=== PATIENT | female | born 1950 | race Caucasian/White ===

== ENCOUNTER 2017-09-27 10:04 | Inpatient (IN) ==
[2017-09-30 07:45] VITALS: BP 113/83
== END 2017-09-30 13:00 | disposition home or self-care (01) | DRG 253 ==
LOC: N.CL 10:04 → N.4E 14:48 → N.CC 09-28 17:39 → N.2E 09-29 12:13 → EDSDCBED 09-29 12:13 → N.TELES 09-29 12:13 → N.CL 09-30 13:00 → UNDODEPSDC 10-01 11:34
PROVIDERS: ADMIT Internal Medicine Cardiovascular Disease; ATTEND Internal Medicine Cardiovascular Disease

== ENCOUNTER 2019-02-03 06:53 | Inpatient (IN) ==
[2019-01-30 14:36] LABS: Basophils # 0.1 10*3/uL (0.0-0.2); Basophils % 0.5 % (0.0-0.8); Eosinophils # 0.2 10*3/uL (0.0-0.87); Eosinophils % 1.8 % (0.00-10.9); Hematocrit 42.6 VOL% (35.7-47.0); Hemoglobin 13.8 GM/DL (12.0-16.0); Immature Granulocytes % 0.3 %; Immature Granulocytes Absolute 0.03 #; Lymphocytes # 3.5 10*3/uL (1.4-4.0); Lymphocytes % 36.8 % (21.3-54.2); Mean Corpuscular HGB Conc 32.4 GM/DL (32-36); Mean Corpuscular Volume 99.8 FL (87-102); Mean Platelet Volume 9.2 FL (9.6-12.0); Monocytes % 9.2 % (1.7-12.7); Neutrophils % 51.4 % (38.7-73.9); Platelet Count 254 T/CUMM (130-400); Red Blood Count 4.27 MC/CUMM (3.8-5.5); Red Cell Distribution Width 14.2 % (9.3-17.3); White Blood Count 9.4 T/CUMM (4-12)
[2019-01-30 15:00] LABS: Albumin 3.8 G/DL (3.4-5.0); Bilirubin,Total 0.6 MG/DL (0.2-1.0); Calcium 8.6 MG/DL (8.5-10.1); Osmolality,Calculated 288.1 MOS/KG (273-304)
[~2019-02-03 06:53] MED LIST: ACETAMINOPHEN 500 MG TABLET PO ONE; DIAZEPAM 5 MG TABLET PO ONE; FAMOTIDINE 20 MG TABLET PO ONE; GABAPENTIN 400 MG CAPSULE PO ONE; ceFAZolin 1,000 MG in SYRINGE 1 EACH IV ONE
[2019-02-03] MEDS ORDERED: ceFAZolin 1,000 MG VIAL ONE (07:12)
[2019-02-03] MEDS: LACTATED RINGERS 1,000 ML IV SCH ×3 (07:36→19:34)
[2019-02-03] MEDS ORDERED: FAMOTIDINE 20 MG TABLET ONE (07:37)
[2019-02-03] MEDS ORDERED: ACETAMINOPHEN 500 MG TABLET ONE (07:37)
[2019-02-03] MEDS ORDERED: GABAPENTIN 400 MG CAPSULE ONE (07:37)
[2019-02-03] MEDS ORDERED: DIAZEPAM 5 MG TABLET ONE (07:38)
[2019-02-03] MEDS ORDERED: SODIUM CHLORIDE 0.9% 1,000 ML IV ONE (08:00)
[2019-02-03] MEDS ORDERED: PHENYLEPHRINE DRIP 20 MG/250 ML PREMIX IV ONE (08:00)
[2019-02-03] MEDS ORDERED: HEPARIN/NACL 0.9% 2 UNITS/ML 500 ML IV ONE (08:00)
[2019-02-03] MEDS ORDERED: NITROGLYCERIN DRIP 50 MG/250 ML BOTTLE IV ONE (08:00)
[2019-02-03] MEDS ORDERED: MIDAZOLAM 2 MG/2 ML VIAL ONE (08:06)
[2019-02-03] MEDS ORDERED: ROPIVACAINE 0.5% 30 ML VIAL ONE (08:07)
[2019-02-03] MEDS ORDERED: fentaNYL 100 MCG/2 ML VIAL ONE (08:07)
[2019-02-03] MEDS ORDERED: HEPARIN 5,000 UNIT/1 ML VIAL ONE (08:10)
[2019-02-03] MEDS ORDERED: LIDOCAINE 1% 20 ML VIAL ONE (08:10)
[2019-02-03] MEDS ORDERED: ALBUTEROL/IPRATROPIUM 3 ML NEB RESP TX ONE (09:08)
[2019-02-03] MEDS ORDERED: TISSUE ADHESIVE 1 EACH APPLICATOR TOP ONE (11:29)
[2019-02-03] MEDS ORDERED: oxyCODONE/ACETAMINOPHEN 5-325 MG TABLET PO PRN ×2 (11:32)
[2019-02-03] MEDS ORDERED: ONDANSETRON 4 MG/2 ML VIAL IV PRN (11:32)
[2019-02-03] MEDS ORDERED: FUROSEMIDE 20 MG TABLET PO PRN (11:36)
[2019-02-03] MEDS ORDERED: PROPOFOL 200 MG/20 ML VIAL IV ONE (11:55)
[2019-02-03] MEDS ORDERED: PHENYLEPHRINE 1 MG/10 ML SYRINGE IV ONE (11:56)
[2019-02-03] MEDS ORDERED: GLYCOPYRROLATE 0.4 MG/2 ML VIAL ONE (11:56)
[2019-02-03] MEDS ORDERED: ONDANSETRON 4 MG/2 ML VIAL ONE (11:56)
[2019-02-03] MEDS ORDERED: ROCURONIUM 100 MG/10 ML VIAL IV ONE (11:56)
[2019-02-03] MEDS ORDERED: ETOMIDATE 40 MG/20 ML VIAL IV ONE (11:56)
[2019-02-03] MEDS ORDERED: LIDOCAINE 2% 5 ML VIAL ONE (11:56)
[2019-02-03] MEDS ORDERED: DEXAMETHASONE 4 MG/1 ML VIAL ONE (11:56)
[2019-02-03] MEDS ORDERED: HEPARIN 10,000 UNIT/10 ML VIAL ONE (11:57)
[2019-02-03] MEDS ORDERED: SEVOFLURANE 1 UNIT/15 MINUTE INH ONE (11:57)
[2019-02-03] MEDS ORDERED: NEOSTIGMINE 10 MG/10 ML VIAL ONE (11:57)
[2019-02-03] MEDS ORDERED: PROTAMINE SULFATE 50 MG/5 ML VIAL IV ONE (11:58)
[2019-02-03] MEDS ORDERED: LACTATED RINGERS 1,000 ML IV ONE (11:58)
[2019-02-03] MEDS: HYDROmorphone 2 MG/1 ML VIAL IV PRN (18:10)
[2019-02-03] MEDS: EZETIMIBE 10 MG TABLET PO SCH (21:34)
[2019-02-03] MEDS: ROSUVASTATIN 20 MG TABLET PO SCH (21:34)
[2019-02-03] MEDS: LOSARTAN 50 MG TABLET PO SCH (21:34)
[2019-02-03] MEDS: traZODone 50 MG TABLET PO SCH (21:35)
[2019-02-04] MEDS: HYDROmorphone 2 MG/1 ML VIAL IV PRN ×4 (05:29→18:15)
[2019-02-04] MEDS: LACTATED RINGERS 1,000 ML IV SCH ×2 (05:29→06:36)
[2019-02-04 06:08] LABS: Basophils % 0.2 % (0.0-0.8); Hematocrit 36.6 VOL% (35.7-47.0); Hemoglobin 11.7 GM/DL (12.0-16.0); Immature Granulocytes % 0.4 %; Immature Granulocytes Absolute 0.05 #; Lymphocytes # 1.8 10*3/uL (1.4-4.0); Lymphocytes % 13.9 % (21.3-54.2); Mean Corpuscular Volume 101.1 FL (87-102); Mean Platelet Volume 9.7 FL (9.6-12.0); Monocytes % 8.9 % (1.7-12.7); Neutrophils % 76.6 % (38.7-73.9); Platelet Count 201 T/CUMM (130-400); Red Blood Count 3.62 MC/CUMM (3.8-5.5); Red Cell Distribution Width 14.6 % (9.3-17.3); White Blood Count 12.7 T/CUMM (4-12)
[2019-02-04 06:30] LABS: Calcium 8.9 MG/DL (8.5-10.1); Osmolality,Calculated 289.7 MOS/KG (273-304)
[2019-02-04] MEDS: METOPROLOL SUCCINATE XL 25 MG TABLET PO SCH (08:43)
[2019-02-04] MEDS: LOSARTAN 50 MG TABLET PO SCH ×2 (08:44→21:17)
[2019-02-04] MEDS: PARoxetine 10 MG TABLET PO SCH (08:44)
[2019-02-04] MEDS: ASPIRIN EC 81 MG TABLET PO SCH (08:44)
[2019-02-04] MEDS: amLODIPine 5 MG TABLET PO SCH (08:44)
[2019-02-04] MEDS: PANTOPRAZOLE 40 MG TABLET PO SCH (08:44)
[2019-02-04] MEDS: CLOPIDOGREL 75 MG TABLET PO SCH (08:44)
[2019-02-04 16:25] LABS: Apearance,Urine CLEAR (Clear); Bilirubin,Urine Negative (Negative); Blood, Urine Negative (Negative); Glucose,Urine (UA) Negative (Negative); Ketones,Urine Negative (Negative); Mucus,Urine Occasional /LPF (Occasional); Nitrite,Urine Negative (Negative); Protein,Urine Negative; RBC,Urine 1 /HPF (0-4); Squamous Epithelial Cell,Urine Occasional /HPF (0-10); Urine Color Colorless (Yellow); Urine Specific Gravity 1.005 (1.001-1.035); Urine Urobilinogen < 2.0 EU/DL (0.2-1.0)
[2019-02-04] MEDS: ROSUVASTATIN 20 MG TABLET PO SCH (21:17)
[2019-02-04] MEDS: traZODone 50 MG TABLET PO SCH (21:17)
[2019-02-04] MEDS: EZETIMIBE 10 MG TABLET PO SCH (21:17)
[2019-02-05] MEDS: HYDROmorphone 2 MG/1 ML VIAL IV PRN ×2 (01:13→08:35)
[2019-02-05] MEDS: ASPIRIN EC 81 MG TABLET PO SCH (08:36)
[2019-02-05] MEDS: CLOPIDOGREL 75 MG TABLET PO SCH (08:36)
[2019-02-05] MEDS: amLODIPine 5 MG TABLET PO SCH (08:36)
[2019-02-05] MEDS: LOSARTAN 50 MG TABLET PO SCH (08:36)
[2019-02-05] MEDS: PANTOPRAZOLE 40 MG TABLET PO SCH (08:37)
[2019-02-05] MEDS: METOPROLOL SUCCINATE XL 25 MG TABLET PO SCH (08:37)
[2019-02-05] MEDS ORDERED: KETOROLAC 30 MG/1 ML VIAL IV ONE (11:34)
[2019-02-05] MEDS: PARoxetine 10 MG TABLET PO SCH (12:29)
[2019-02-05] MEDS ORDERED: ALBUTEROL/IPRATROPIUM 3 ML NEB RESP TX SCH (12:41)
[2019-02-05 16:04] VITALS: BP 150/81
== END 2019-02-05 15:55 | disposition home or self-care (01) | DRG 253 ==
LOC: N.SDSINP 06:53 → N.3E 13:46
PROVIDERS: ADMIT Surgery; ATTEND Surgery